=== PATIENT | female | born 1950 | race Caucasian/White ===

== ENCOUNTER 2020-02-09 21:53 | Emergency (ER) | payer MEDICARE, SELFPAY ==
[2020-02-09 22:00] VITALS: BP 182/96; PULSE 72; RESP 16; TEMP 36.6; O2SAT 96; BMI 33.9
--- NOTE | 2020-02-09 23:39 | ED_ITS ---
HPI - Extremity Problem General: Chief complaint: Extremity Injury, Lower Stated complaint: lac on leg Time Seen by Provider: 02/09/20 23:35 Source: patient Mode of arrival: ambulatory Limitations: no limitations History of Present Illness: HPI Narrative: 70-year-old female states that she did visit her house and had to be keep her out. She states he dropped a box that then bounced and hit her in the right lower leg and has a laceration to her right calf. This happened roughly 4 hours ago. She does have a 3 cm laceration to the leg. She states her tetanus is not up-to-date. Denies any pain at this time. Associated symptoms: Deny chest pain, fever(s) or rash Review of Systems Const: Denies: fever(s), chills, body aches or change in appetite Eyes: Denies: blurry vision or eye discomfort ENMT: Denies: throat pain or dental pain Card: Denies: chest pain Resp: Denies: dyspnea GI: Denies: abdominal pain, nausea, vomiting or diarrhea : Denies: dysuria Musc: Denies: neck pain or back pain Skin/Breast: Denies: rash Neuro: Denies: headache(s) Psych: Denies: depression Emeka/Lymph: Denies: easy bruising All/Imm: Denies: urticaria Physical Exam Const: COMMON NORMALS: no acute distress, patient oriented x3 and healthy appearing HENMT: COMMON NORMALS: normocephalic and atraumatic HEAD & SCALP: normocephalic and atraumatic Eye: COMMON NORMALS: Equal, round and reactive pupils present and EOMs intact bilaterally PUPIL: Yes Equal, round and reactive pupils present Neck/C-Spine: COMMON NORMALS: full ROM and supple Chest: COMMONS NORMALS: normal inspection of the chest and normal palpation of entire chest wall Resp: COMMON NORMALS: normal respiratory effort, No retractions, No use of accessory muscles and clear to auscultation bilaterally AUSCULTATION: clear to auscultation bilaterally Cardio: COMMON NORMALS: regular rate, regular rhythm and No murmurs present (Cardio) RATE: regular rate RHYTHM: regular rhythm GI: COMMON NORMALS: Normal to inspection, nondistended, normoactive bowel sounds present, Soft to palpation, non-tender and no masses PALPATION: Yes Soft to palpation Extremity: COMMON NORMALS: normal to inspection and full ROM Neuro: COMMON NORMALS: patient oriented x3, moves all extremities and no focal motor deficits Psych: COMMON NORMALS: mental status grossly normal, Normal thought process present and cooperative THOUGHT PROCESS: Normal thought process present Skin: COMMON NORMALS: no rashes or lesions noted NARRATIVE SKIN EXAM: 3 cm laceration to right lower leg GENERAL SKIN EXAM: no rashes or lesions noted Procedures Laceration Laceration 1: Site: lower extremity Side (If applicable): left Size (cm): 3 Description: linear Depth: simple, single layer Local Anesthetic: lidocaine 1% Amount of anesthesia used (mL): 10 Pre-repair: wound explored, irrigated extensively and deep structures intact Skin layer closed with: nylon Size (cm): 4-0 Number of sutures: 3 Technique: simple, interrupted Course Vital Signs: Vital signs: Vital Signs Temperature 97.8 F 02/09/20 22:00 Pulse Rate 72 02/09/20 22:00 Respiratory Rate 16 02/09/20 22:00 Blood Pressure 182/96 02/09/20 22:00 Pulse Oximetry 96 02/09/20 22:00 MDM - Extremity (Nontraumatic) MDM Narrative: Medical decision making narrative: Patient presents here with a laceration to her lower leg. Laceration was repaired. She is well-appearing here and had her tetanus updated. She is to follow-up with her PCP or the ER in 10 to 14 days for suture removal. She is to watch for any signs of infection. Discharge Plan Discharge Patient Disposition: Home Clinical Impression: Laceration of leg Qualifiers: Encounter type: initial encounter Laterality: right Qualified Code(s): S81.811A - Laceration without foreign body, right lower leg, initial encounter Condition: Stable Discharge Orders: Discharge Order (Routine); Ordered 02/09/20 Ordered By: Gregory Rodríguez Referrals: Steffany Bedolla MD [Primary Care Provider] - Discharge Diet: Advance as tolerated Discharge Activity: Resume usual activity Patient Instructions: Suture Care (ED), Laceration (ED) Activity Restrictions/Additional Instructions: Suture removal in 10 to 14 days Coding Level of Care Code ED Campaign Specialist for Mary Barreto
[2020-02-09] MEDS: tetanus-dipt-pertussis 0.5 mL SDV IM (23:47)
[2020-02-09 23:49] VITALS: BP 123/76; PULSE 87; RESP 18; O2SAT 99
[2020-02-09] MEDS: lidocaine 1% INJ 20 mL INJECTION (23:49)
== END 2020-02-09 23:55 | disposition home or self-care (01) ==
PROVIDERS: Emergency Provider Emergency Medicine; PCP Family Medicine
DX: S81.811A Laceration without foreign body, right lower leg, initial encounter (principal); W20.8XXA Other cause of strike by thrown, projected or falling object, initial encounter; Z23 Encounter for immunization
CPT/HCPCS: 12002; 12345; 90471; 90715; 99282

== ENCOUNTER 2020-09-28 13:43 | Outpatient (CLI) | payer MEDICARE, SELFPAY ==
--- NOTE | 2020-09-28 13:55 | MM_ITS ---
WS: [id number] Bilateral screening digital mammogram, 09/28/2020 Clinical Data: SCREENING Comparison: None. Findings: The breast parenchymal pattern shows fibroglandular tissue No spiculated masses or clustered calcific ations are seen. There are no secondary signs of carcinoma. Oral markers are on both breasts. There a re lymph nodes in both axilla. MM/[id number] Impression: 1. Negative bilateral mammogram with no prior exam for review. 2. Recommend annual screening mammograms. BIRADS: 1-Negative FOLLOW UP: 1 Year Follow-up The CAD amusement or recreation card checker was used.
== END 2020-09-28 13:44 | disposition home or self-care (01) ==
PROVIDERS: PCP Family Medicine; Visit Provider Family Medicine
DX: Z12.31 Encounter for screening mammogram for malignant neoplasm of breast (principal)
CPT/HCPCS: 77067

== ENCOUNTER 2021-02-12 13:09 | Outpatient (CLI) | payer MEDICARE, SELFPAY ==
--- NOTE | 2021-02-12 13:19 | CT_ITS ---
WS: [id number] CT ABDOMEN AND PELVIS NONCONTRAST HISTORY: IRRITABLE JAGDEEP SYNDROME WITH DIARRHEA TECHNIQUE: Imaging performed through the abdomen and pelvis. Coronal and sagittal reformats are submi tted. All CT scans at [facility] use at least one of these dose optimization techniques: auto mated exposure control; mA and/or kV adjustment per patient size (includes targeted exams where dose is matched to clinical indication); or iterative reconstruction. DLP: 783.01 mGycm COMPARISON: None available. Lower thorax: Lung bases are clear. Moderate sized incarcerated hiatal hernia. Normal size heart. Liver: Normal size liver. No mass or bile duct dilatation. Gallbladder: Normal gallbladder. Pancreas: Normal size and attenuation. Normal pancreatic duct. No pancreatitis or mass. Spleen: Normal. Adrenal glands: Normal. No mass. Right kidney: Surgically absent. No mass at the renal bed. Left kidney: Normal size kidney with no mass or hydronephrosis. Aorta: Mild atherosclerosis of aorta. No aneurysm. No free fluid, intraperitoneal air or significant lymphadenopathy. GI tract: Normal appendix. No GI tract obstruction. No wall thickening. Very few scattered sigmoid di verticula. Abdominal wall: Negative. No hernia. Pelvis: No free fluid or adenopathy. Urinary bladder is well distended. Osseous structures: Unremarkable. CT/CT abdomen pelvis wo con [id number] IMPRESSION: 1. No acute abdominal or pelvic abnormalities are identified. 2. Normal appendix. 3. Mild sigmoid diverticulosis without acute diverticulitis. 4. Prior RIGHT nephrectomy. 5. Moderate sized incarcerated hiatal hernia.
[2021-02-12] MEDS: iohexol 300 mg/mL 50 mL Btl PO (13:52)
== END 2021-02-12 13:10 | disposition home or self-care (01) ==
LOC: RADWPI 13:11
PROVIDERS: PCP Family Medicine; Visit Provider Nurse Practitioner
DX: K58.0 Irritable bowel syndrome with diarrhea (principal); K57.30 Diverticulosis of large intestine without perforation or abscess without bleeding; Z90.5 Acquired absence of kidney; K44.9 Diaphragmatic hernia without obstruction or gangrene
CPT/HCPCS: 74176; Q9967